=== PATIENT | male | born 1985 | race Caucasian/White ===

== ENCOUNTER 2023-04-10 08:48 | Day surgery (SDC) | payer OTHER, SELFPAY ==
--- NOTE | 2023-04-10 09:27 | HO.ANESPROP2 ---
[facility] Past Medical History Medical History ADHD Surgical History Surgical History Hx of wisdom tooth extraction Hx of inguinal hernia repair Hx of umbilical hernia repair History of Problems with Anesthesia: No Social History Social History Patient Tobacco Use Status: Never used Tobacco Use of substances other than those prescribed or required for medical reasons: No Are you DNR?: No Advance Directives: No Advance Directives Information Provided: Yes Meds Allergies Allergy/AdvReac Type Severity Reaction Status Date / Time No Known Allergies Allergy Verified 04/10/23 09:52 Home Medications Medication Instructions Recorded Confirmed Last Taken Type Pure L-Threonine 04/09/23 04/09/23 Unknown History chamomile flower 150 mg tablet mg PO 04/09/23 Unknown History dextroamphetamine-amphetamine ER 10 mg PO QAM 04/09/23 04/09/23 Unknown History 10 mg 24hr capsule,extend release (Adderall XR) magnesium L-threonate 04/09/23 Unknown History Exam Airway Mallampati Class: II TM Dist: >3cm Neck ROM: Full Loose/Missing/Broken Teeth: No Heart: RRR Lungs: CTA Assessment and Plan Assessment Anesthesia Assessment: Anesthesia Plan Discussed and Chart Reviewed Final Anesthetic Review History of Problems with Anesthesia: No NPO: Yes ASA Class: II Final Preanesthetic Review: Meds/Allgs Chart Reviewed, Consent Obtained/Reviewed and Anes Risks/Benef Reviewed Patient Risk: Low Procedure Risk: Low Anesthetic Plan Anesthetic Plan: GA Disposition: Standard PACU
[2023-04-10 09:31] VITALS: BMI 23.8
[2023-04-10 09:55] VITALS: BP 121/61; PULSE 66; RESP 16; TEMP 37; O2SAT 98
[2023-04-10 12:10] VITALS: BP 130/65; PULSE 92; RESP 18; TEMP 36.1; O2SAT 100
[2023-04-10 12:15] VITALS: BP 116/60; PULSE 65; RESP 18; O2SAT 100
[2023-04-10 12:20] VITALS: BP 119/59; PULSE 67; RESP 18; O2SAT 99
[2023-04-10 12:25] VITALS: BP 123/58; PULSE 67; RESP 18; O2SAT 99
[2023-04-10 12:40] VITALS: BP 103/68; PULSE 68; RESP 18; TEMP 36.4; O2SAT 99
--- NOTE | 2023-04-10 13:32 | HO.OPHTHAL ---
Ophthalmology Operative Note Date of Service: 04/10/23 Narrative: Diagnosis esotropia. Procedure bilateral medial rectus recessions of [address] Bustos. Anesthesia general. Complications none. The patient was brought to the operative room placed under general anesthesia. The eyes were prepped and draped in the usual sterile ophthalmic fashion. A lid speculum was placed in the right eye and incisions made at bare sclera in the inferonasal fornix. The medial rectus muscle was hooked and secured with a double-armed Vicryl suture. It was disinserted the globe and reattached to a position 5 mm behind the original insertion using a hang back technique. Conjunctiva was closed with interrupted Vicryl sutures. An identical procedure was then performed on the left eye. The patient was then awoken from general anesthesia and discharged to postoperative recovery in good condition.
== END 2023-04-10 13:00 | disposition home or self-care (01) ==
PROVIDERS: PCP Internal Medicine; Visit Provider Ophthalmology
PROC: (CPT 67311; principal; 2023-04-10 10:40)
DX: H50.32 Intermittent alternating esotropia (principal); F90.0 Attention-deficit hyperactivity disorder, predominantly inattentive type; Z79.899 Other long term (current) drug therapy
CPT/HCPCS: 67311; J0131; J0330; J1100; J1596; J1885; J2250; J2704; J3010